=== PATIENT | female | born 1970 ===

== ENCOUNTER 2019-11-19 20:20 | Emergency (ER) ==
[~2019-11-19] VITALS: Ht 167.6 cm; Wt 75.0 kg
[2019-11-19 20:24] VITALS: BP 125/82
--- NOTE | 2019-11-19 20:27 | NUR ---
Pt repeatedly states that she did not want to come here and that she would like to leave.
== END 2019-11-19 22:09 | disposition left against medical advice (07) ==
LOC: ER 20:21
DX: M79.603 Pain in arm, unspecified (principal); Z53.21 Procedure and treatment not carried out due to patient leaving prior to being seen by health care provider
CPT/HCPCS: 93005